=== PATIENT | male | born 1965 | race Caucasian/White ===

== ENCOUNTER 2016-05-28 21:59 | Emergency (ER) | payer BC, OTHER ==
[2016-05-28 22:07] VITALS: BP 155/89
[2016-05-29] MEDS ORDERED: Ketorolac INJ* 60 MG/2 ML VIAL ONE (00:45)
== END 2016-05-29 01:07 | disposition home or self-care (01) ==
LOC: ED 21:59
DX: S61.511A Laceration without foreign body of right wrist, initial encounter (principal); W45.8XXA Other foreign body or object entering through skin, initial encounter; Y93.9 Activity, unspecified; Y92.9 Unspecified place or not applicable
CPT/HCPCS: 96374; 99281; J1885